=== PATIENT | female | born 1970 | race Caucasian/White ===

== ENCOUNTER 2024-06-16 01:51 | Emergency (ER) | payer BC, SELFPAY ==
[2024-06-16 01:54] VITALS: BP 148/82
--- NOTE | 2024-06-16 02:15 | ED.GENMED ---
History of Present Illness
<Marry Dinero MD, Resident - Last Filed: 06/16/24 06:08>
General
Chief Complaint: Urinary Symptoms
Time Seen by Provider: 06/16/24 01:56
History of Present Illness
History of Present Illness:
The patient is a 51-year-old female with history of insulin-dependent diabetes, hypertension, hyperlipidemia presents with UTI symptoms that began yesterday evening. She took Azo to help to address her symptoms but it did not help that much. She
complains of dysuria, urgency, urinary frequency. Similar symptoms in 2020, 2021, 2022 ,diagnosed with UTI She was treated with Cipro in 2020 and treated with Macrobid in 2021 and with an antibiotic in 2022 regarding her urine culture results.
The patient reports that her blood sugar levels are well managed.
She denies fever, chills, denies back or flank pain, no abdominal pain, no nausea or vomiting.
Past History
ED Past Medical History: CVA, HTN, Hypercholesterolemia, IDDM and NIDDM, repeated UTI annually since 2020
ED Past Surgical History: Cholecystectomy and Other (Inguinal hernia repair)
Social History
Tobacco: Non-smoker
Alcohol: None
Personal:
Living: with family
Employment: Employed
Family History
Family History: Other (Noncontributory)
Review of Systems
Review of Systems
All Other Systems: ROS reviewed and negative except as documented in HPI and ROS
Constitutional: Denies fever or chills
EENT: Reports no symptoms
Respiratory: Denies cough or trouble breathing
Cardiac: Denies chest pain
ABD/GI: Denies abdominal pain, nausea or anorexia
: Reports dysuria, frequency and urgency; Denies flank pain or bleeding
Musculoskeletal: Denies back pain
Neurological: Denies dizzy or headache
Phy Exam
Physical Exam
Physical Exam:
GENERAL: Alert , in no apparent distress. 51-year-old obese woman appears her stated age, bright and alert, pleasant, appears in no acute distress.
EYE: pupils equal and reactive. anicteric
NECK: Supple, nontender, no meningismus, no significant adenopathy.
ENT: Face mask in place.
CARDIAC: Regular rate and rhythm. no murmur.
LUNGS: Clear breath sounds bilaterally, no acute respiratory distress, no wheezes/rales/rhonchi
ABDOMEN: Rotund, Soft, nondistended, without focal tenderness, no r/g, no cvat. normoactive BS.
NEUROLOGICAL: Alert and oriented x3, no focal neuro deficits. Gait is steady.
SKIN: Warm and dry, normal color, skin intact. No rash.
MUSCULOSKELETAL: No C/C/E. peripheral pulses are full and equal b/l. No palpable tenderness.
PSYCH: Normal and appropriate interaction.
If applicable-neuro sx onset
Date of onset of symptoms: 06/16/24
Past History
<Marry Dinero MD, Resident - Last Filed: 06/16/24 06:08>
Past History
ED Past Medical History: CVA, HTN, Hypercholesterolemia, IDDM and NIDDM
ED Past Surgical History: Cholecystectomy and Other (Inguinal hernia repair)
Social History
Tobacco: Non-smoker
Alcohol: None
Personal:
Living: with family
Employment: Employed
Family History
Family History: Other (Noncontributory)
Phy Exam
<Marry Dinero MD, Resident - Last Filed: 06/16/24 06:08>
Physical Exam
Physical Exam:
Normal physical exam findings
Course
<Marry Dinero MD, Resident - Last Filed: 06/16/24 06:08>
Orders/Labs/Results
Orders:
Orders
06/16/24 02:18
Acetaminophen [Tylenol] 650 mg PO NOW STA
06/16/24 02:29
Complete Blood Count/With Diff Urgent
Comprehensive Metabolic Panel Urgent
06/16/24 02:37
Urinalysis Reflex To Culture Urgent
Date Specimen was Collected: 06/16/24
Time Specimen was Collected: 02:35
Urine Microscopic Reflex Cult Urgent
Urine Culture Urgent
CLINT Source: U
Specimen Description:
Date Specimen was Collected: 06/16/24
Time Specimen was Collected: 02:35
06/16/24 02:42
Nitrofurantoin Monohydrate [Macrobid] 100 mg PO NOW STA
Phenazopyridine HCl [Pyridium] 100 mg PO NOW STA
Abnormal Lab Results
06/16/24 06/16/24
02:29 02:37
WBC 17.0 H 10^3/uL
(4.8-10.8)
Abs Immat Gran (auto) 0.1 H 10^3/uL
(0-0.05)
Absolute Neuts (auto) 13.2 H 10^3/uL
(1.4-6.5)
Absolute Monos (auto) 0.9 H 10^3/uL
(0.1-0.6)
Neutrophils % 77.2 H %
(42.2-75.2)
Lymphocytes % 15.3 L %
(20.5-51.1)
BUN 20 H mg/dl
(7-17)
Glucose 157 H mg/dl
(70-99)
Ur Occult Blood Reflex 4+ A
(Negative)
Urine Nitrite (Reflex) Positive A
(Negative)
Urine Bilirubin 3+ A
(Negative)
Urine Urobilinogen 3+ A
(Neg - 1+)
Urine RBC 50-60 A /HPF
(0-2)
Urine WBC (Reflex) 16-20 A /HPF
(0-5)
Urine Bacteria (Reflex) Few A
(Negative)
Urine Albumin (Reflex) 3+ A
(Neg - Trace)
06/16/24 02:29
06/16/24 02:29
Vital Signs
Initial and Last Documented VS:
Initial Vital Signs
Temp Pulse Resp BP Pulse Ox
98.2 F 90 24 148/82 96
06/16/24 01:54 06/16/24 01:54 06/16/24 01:54 06/16/24 01:54 06/16/24 01:54
Last Documented Vital Signs
Temp Pulse Resp BP Pulse Ox
98.2 F 85 24 148/82 100
06/16/24 01:54 06/16/24 03:14 06/16/24 01:54 06/16/24 01:54 06/16/24 03:14
<Gracie Rene, DO - Last Filed: 06/16/24 03:33>
Orders/Labs/Results
Orders:
Orders
06/16/24 02:18
Acetaminophen [Tylenol] 650 mg PO NOW STA
06/16/24 02:29
Complete Blood Count/With Diff Urgent
Comprehensive Metabolic Panel Urgent
06/16/24 02:37
Urinalysis Reflex To Culture Urgent
Date Specimen was Collected: 06/16/24
Time Specimen was Collected: 02:35
Urine Microscopic Reflex Cult Urgent
Urine Culture Urgent
CLINT Source: U
Specimen Description:
Date Specimen was Collected: 06/16/24
Time Specimen was Collected: 02:35
06/16/24 02:42
Nitrofurantoin Monohydrate [Macrobid] 100 mg PO NOW STA
Phenazopyridine HCl [Pyridium] 100 mg PO NOW STA
Abnormal Lab Results
06/16/24 06/16/24
02:29 02:37
WBC 17.0 H 10^3/uL
(4.8-10.8)
Abs Immat Gran (auto) 0.1 H 10^3/uL
(0-0.05)
Absolute Neuts (auto) 13.2 H 10^3/uL
(1.4-6.5)
Absolute Monos (auto) 0.9 H 10^3/uL
(0.1-0.6)
Neutrophils % 77.2 H %
(42.2-75.2)
Lymphocytes % 15.3 L %
(20.5-51.1)
BUN 20 H mg/dl
(7-17)
Glucose 157 H mg/dl
(70-99)
Ur Occult Blood Reflex 4+ A
(Negative)
Urine Nitrite (Reflex) Positive A
(Negative)
Urine Bilirubin 3+ A
(Negative)
Urine Urobilinogen 3+ A
(Neg - 1+)
Urine RBC 50-60 A /HPF
(0-2)
Urine WBC (Reflex) 16-20 A /HPF
(0-5)
Urine Bacteria (Reflex) Few A
(Negative)
Urine Albumin (Reflex) 3+ A
(Neg - Trace)
06/16/24 02:29
06/16/24 02:29
Vital Signs
Initial and Last Documented VS:
Initial Vital Signs
Temp Pulse Resp BP Pulse Ox
98.2 F 90 24 148/82 96
06/16/24 01:54 06/16/24 01:54 06/16/24 01:54 06/16/24 01:54 06/16/24 01:54
Last Documented Vital Signs
Temp Pulse Resp BP Pulse Ox
98.2 F 85 24 148/82 100
06/16/24 01:54 06/16/24 03:14 06/16/24 01:54 06/16/24 01:54 06/16/24 03:14
<Marry Dinero MD, Resident - Last Filed: 06/16/24 06:08>
MDM/Problems Addressed
Differential Diagnosis Includes:
UTI, Cystitis, Kidney infection
MDM/Problems Addressed:
CBC, CMP, Urinalysis with urine culture were ordered.
<Gracie Rene, DO - Last Filed: 06/16/24 03:33>
*Pulse Oximetry
Patient hypoxic: no
*Critical Care Note
Total Time (30-74mins, 75-104mins- exclusive of procedures): Not Applicable
ED Attending Note
<Marry Dinero MD, Resident - Last Filed: 06/16/24 06:08>
-
Portions of this chart may have been created with voice recognition software.� Occasional wrong word or��sound alike� substitutions may have occurred due to the inherent limitations of voice recognition software.
<Gracie Rene, DO - Last Filed: 06/16/24 03:33>
ED Attending Note
Patient seen and examined by attending physician: Yes
I performed a history and physical exam of patient and discussed management with resident, I reviewed resident's note and agree with documented findings and plan of care.: Yes
ED Attending Note:
53-year-old woman with history of hypertension, hyperlipidemia insulin requiring diabetes, CVA as well as history of occasional UTIs that generally occur once per year. She presents with her typical UTI symptoms that began this evening. She
complains of dysuria, urinary frequency, urgency and scant hematuria. She has had no accompanying abdominal pain, no flank pain, no fever nor chills.
No history of kidney stones.
Remote history of acute kidney injury 2016 related to dehydration, resolved with IV fluids and temporarily holding lisinopril. Patient states renal function has remained normal since then and she states her blood sugars have been well-controlled.
She did take a dose of Azo tonight without significant relief of symptoms.
Records reveal very similar complaints during ED visit May 2022, treated with a 5-day course of Macrobid with resolution of symptoms.
53-year-old woman appears her stated age, awake and alert, pleasant, appears in no acute distress. Afebrile.
Oral mucosa is moist. Appears euvolemic.
Abdomen is rotund, soft, nontender. No CVA tenderness.
History and exam most consistent with UTI. Nothing in history nor exam to suggest upper tract infection nor ureteric stone.
Urinalysis is pending.
Will give an additional dose of Pyridium now and initiate a course of Macrobid.
06/16/2024 0322 AM
Labs show elevated white blood cell count of 17. She remain afebrile.
Chemistries are unremarkable.
Urinalysis suspicious for UTI; microscopic showing 50-60 RBCs, 16-20 WBCs and few bacteria.
Urine culture is pending.
Will treat with course of Macrobid and plan for prompt follow-up with PCP.
Return precautions discussed.
Discharge Plan
Departure
Patient Disposition: Home (Routine Discharge)
Date of Disposition: 06/16/24
Time of Disposition: 03:23
Patient with high blood pressure during this ER visit?: No
Condition: Good
Discharge Problem:
Acute cystitis, Leukocytosis
Instructions: Urinary Tract Infection, Adult (DC)
Prescriptions:
New
nitrofurantoin monohyd/m-cryst [Macrobid] 100 mg capsule
100 mg PO BID 5 Days Qty: 10 0RF
phenazopyridine [Pyridium] 200 mg tablet
200 mg PO TID PRN (Reason: UTI symptoms) 3 Days Qty: 9 0RF
No Action
atorvastatin 20 MG tablet
20 mg PO HS
carvedilol 12.5 MG tablet
12.5 mg PO BID
clopidogrel 75 MG tablet
75 mg PO DAILY
lisinopril 10 MG tablet
10 mg PO DAILY Qty: 30 0RF
nitrofurantoin monohyd/m-cryst [Macrobid] 100 mg capsule
100 mg PO Q12H 5 Days Qty: 10 0RF
metformin 500 MG tablet
1,000 mg PO BID@0800,1700
Referrals:
Syed Willis MD [Family Provider] - Call in 1-3 days for appt
Interventions
Interventions:
*Risk Screen - Suicide Last Done: 06/16/24 01:54
*General Assessment Last Done: 06/16/24 03:12
*Neglect/Abuse Screening Last Done: 06/16/24 01:54
ED- Fall Risk Assessment Last Done: 06/16/24 03:20
*ED COVID-19 Vaccine History Last Done: 06/16/24 03:12
*Nursing Disposition Last Done: 06/16/24 03:29
ED-Female Genitourinary Assessment Last Done: 06/16/24 03:21
Discharge Date and Time
Discharge Date/Time: 06/16/24 03:38
Print Language: SPANISH
[2024-06-16] MEDS: TYLENOL 650 MG PO (02:32)
[2024-06-16 02:36] VITALS: BMI 45.5
[2024-06-16 02:38] LABS: % Basophils 0.4 % (0-2); % Eosinophils 1.5 % (0-6); % Immature Granulocytes 0.3 % (0-0.5); % Lymphocytes 15.3 % (20.5-51.1); % Monocytes 5.3 % (1.7-9.3); % Neutrophils 77.2 % (42.2-75.2); Absolute Basophils 0.1 10^3/uL (0-0.2); Absolute Eosinophils 0.3 10^3/uL (0-0.7); Absolute Immature Granulocytes 0.1 10^3/uL (0-0.05); Absolute Lymphocytes 2.6 10^3/uL (1.2-3.4); Absolute Monocytes 0.9 10^3/uL (0.1-0.6); Absolute Neutrophils 13.2 10^3/uL (1.4-6.5); Hematocrit 38.6 % (37.0-47.0); Hemoglobin 13.2 g/dL (12.0-16.0); Mean Corp Hgb Conc. 34.2 g/dL (33.0-37.0); Mean Corpuscular Hgb 28.3 pg (27.0-31.0); Mean Corpuscular Volume 82.8 fL (81.0-99.0); Mean Platelet Volume 9.7 fL (7.4-10.4); Nucleated Red Blood Cells % 0 %; Platelet Count 392 10^3/uL (130-400); Red Blood Cell Count 4.66 10^6/uL (4.20-5.40); Red Cell Dist. Width 13.8 % (11.5-14.5)
[2024-06-16] MEDS: Pyridium 100 MG PO (02:48)
[2024-06-16] MEDS: MACROBID 100 MG PO (02:48)
[2024-06-16 02:50] LABS: Urine Albumin 3+ (Neg - Trace); Urine Bilirubin 3+ (Negative); Urine Character Very Cloudy (Clear); Urine Color Red; Urine Glucose Negative (Negative); Urine Ketone Negative (Negative); Urine Leukocyte Negative (Negative); Urine Nitrite Positive (Negative); Urine Occult Blood 4+ (Negative); Urine Urobilinogen 3+ (Neg - 1+)
[2024-06-16 03:01] LABS: ALT (SGPT) 17 U/L (0-35); AST (SGOT) 16 U/L (14-36); Albumin 4.2 g/dl (3.5-5.0); Alkaline Phosphatase 84 U/L (38-126); Blood Urea Nitrogen 20 mg/dl (7-17); Calcium 9.8 mg/dl (8.4-10.2); Carbon Dioxide 23 mmol/L (22-30); Chloride 103 mmol/L (98-107); Estimated Creatinine Clearance 97 ml/min; Glucose 157 mg/dl (70-99); Potassium 4.6 mmol/L (3.5-5.1); Sodium 136 mmol/L (135-145); Total Bilirubin 1.2 mg/dl (0.2-1.3); eGFR > 60.00
[2024-06-16 03:08] LABS: Urine Red Blood Cell 50-60 /HPF (0-2); Urine Squamous Cell 0-2 /LPF (Few); Urine White Cell 16-20 /HPF (0-5)
[2024-06-16 03:09] LABS: Urine Bacteria Few (Negative)
== END 2024-06-16 03:38 | disposition home or self-care (01) ==
LOC: EMR 01:51
PROVIDERS: Student in an Organized Health Care Education/Training Program; EMERGENCY PHYSICIAN Emergency Medicine; FAMILY PHYSICIAN Family Medicine
DX: N30.01 Acute cystitis with hematuria (principal); D72.829 Elevated white blood cell count, unspecified; I10 Essential (primary) hypertension; E11.9 Type 2 diabetes mellitus without complications; E78.00 Pure hypercholesterolemia, unspecified
CPT/HCPCS: 99283; 80053; 81003; 81015; 85025; 87086